=== PATIENT | male | born 1995 | race Caucasian/White ===

== ENCOUNTER 2023-12-27 18:54 | Emergency (ER) | payer OTHER, SELFPAY ==
[2023-12-27] MEDS ORDERED: Ketorolac Tromethamine 30 MG (1 mL) VIAL ONE (20:53)
== END 2023-12-27 21:00 | disposition home or self-care (01) ==
LOC: ERS 18:54
DX: S00.81XA Abrasion of other part of head, initial encounter (principal); V29.99XA Rider (driver) (passenger) of other motorcycle injured in unspecified traffic accident, initial encounter
CPT/HCPCS: 70450; 71046; 96372; J1885